=== PATIENT | male | born 1980 | race Caucasian/White ===

== ENCOUNTER → 2018-01-03 11:49 | Outpatient (CLI) | payer MEDICAID, SELFPAY ==
[2018-01-03 14:25] LABS: Absolute Lymphocyte Count 1.95 X10^3/ul (0.83-4.51); Absolute Neutrophil Count 3.4 X10^3/uL (2.0-7.7); Basophil# 0.03 X10^3/uL; Basophil% 0.5 % (0-1); Eosinophil# 0.21 X10^3/uL; Eosinophils% 3.3 % (0-5); Hematocrit 44.4 % (40-54); Hemoglobin 15.3 g/dl (13.0-16.5); Lymphocyte # 1.95 X10^3/ul (4.0); Lymphocyte % 30.7 % (19-41); Mean Corp Hgb Conc 34.5 g/gl (32-36); Mean Corpuscular Hgb 32.6 pg (27.0-32.0); Mean Corpuscular Volume 94.7 fL (80-94); Mean Platelet Vol. 10.5 fl (6.2-12.0); Monocyte# 0.71 X10^3/uL; Monocyte% 11.2 % (0-10); Neutrophil # 3.44 X10^3/uL (2.7-7.7); Neutrophil % 54.1 % (47-70); Platelet Count 253 K/mm3 (150-450); RBC Distribution Width CV 12.4 % (11.6-14.6); RBC Distribution Width SD 42.2 fl (35.1-43.9); Red Blood Count 4.69 M/mm3 (4.6-6.2); White Blood Count 6.4 K/mm3 (4.4-11.0)
[2018-01-03 14:36] LABS: POSITIVE COUNT NO; POSITIVE DIFFERENTIAL NO; POSITIVE MORPHOLOGY NO
[2018-01-03 14:43] LABS: Vitamin B12 989 pg/mL (211-911); Vitamin D,25 Hydroxy 22.9 ng/mL (29.95-100.01)
[2018-01-03 14:59] LABS: ALB/GLOB Ratio 1.1 RATIO (0.9-2.4); AST(SGOT) 18 U/L (15-37); Alanine Aminotransfer ALT/SGPT 17 U/L (16-61); Albumin, Serum 4.2 g/dL (3.2-5.0); Alkaline Phosphatase 137 U/L (45-117); Anion Gap 10 (5-15); BUN 12 mg/dL (7-18); BUN/Creat Ratio 13.6 RATIO (10-20); Chloride 105 mmol/L (98-107); Creatinine, Serum 0.88 mg/dL (0.70-1.30); EST Glomerular Filtration Rate 102 mL/min (>60); Est Glom Filt Rate - Afr Amer 124 mL/min (>60); Globulin 3.8 g/dL (2.2-4.2); Glucose 90 mg/dL (74-106); Iron 99 ug/dL (65-175); Potassium 3.8 mmol/L (3.5-5.1); Prealbumin 31.7 mg/dL (20.0-40.0); Sodium Level 142 mmol/L (136-145); Thyroid Stim Hormone (TSH) 1.07 uIU/mL (0.358-3.74)
== END ==
PROVIDERS: Family Provider Family Medicine; PCP Family Medicine; Visit Provider Family Medicine
DX: G80.9 Cerebral palsy, unspecified (principal)
CPT/HCPCS: 36415; 80053; 82306; 82607; 83540; 84134; 84443; 85025

== ENCOUNTER → 2018-01-17 12:38 | Outpatient (CLI) | payer MEDICAID, SELFPAY ==
--- NOTE | 2018-01-17 12:41 | RAD_ITS ---
STUDY: SWALLOWING STUDY REASON FOR EXAM: Male, 37 years old. Cerebral palsy. Dysphagia. Limited study due to patient's condition. TECHNIQUE: The examination was performed with Speech Pathology in attendance. Under fluoroscopic observation, the patient ingested thin barium, thick barium, barium pudding, and barium coated cracker. FLUOROSCOPY TIME: 1:20 minutes/seconds. 1247 spot images were obtained. RADIOLOGIST INVOLVEMENT: Radiologist was present and providing direct supervision. COMPARISON: None. FINDINGS: The following was observed during swallowing of the various mixtures of barium: Thin Barium: Penetration with evacuation upon ingestion of thin liquids. Barium Pudding: Patient refused to ingest pudding. RAD/Swallowing Function w/Video IMPRESSION: Limited study. Penetration with evacuation upon ingestion of thin liquids. The swallow study findings were discussed with the patient by the speech pathologist at the conclusion of the examination. Please see speech pathology report for more information and recommendations. Electronically Signed: Jewel Anne MD at 13:59 EDT Tel [phone], Service support ,
--- NOTE | 2018-01-17 13:00 | SP.MBSS_ITS ---
PRIMARY / SECONDARY DIAGNOSIS: cerebral palsy (G80.9), dysphagia (R13.10) REFERRING PHYSICIAN: Dr. Jose Angel Sellers MD CURRENT DIET: pureed textures, thin liquids DENTITION: WFL MENTAL STATUS: impaired RESPIRATORY STATUS: O2 via room air PREVIOUS MODIFIED BARIUM SWALLOW STUDY: none REASON FOR REFERRAL: Patient is a 37 year old male referred for a modified barium swallow (MBS) study to objectively assess the Patients oropharyngeal swallow function under fluoroscopy secondary to difficulties during deglutition secondary to the diagnosis of cerebral palsy. Patients caregiver present, reports Patient consumes intake at a very rapid rate with Patient frequently spitting out material. Patients caregiver reports limited further history, as she very recently assumed guardianship following the passing of the Patients prior caregiver. Patient brought back to fluoroscopy suite prior to clinician arrival due to significant agitation / anxiety while in waiting room, difficult to keep Patient in wheelchair and initially in fluoroscopy suite chair. MEDICAL HISTORY: Cerebral palsy, severe cognitive deficits, Patients caregiver unable to provide further detail. STUDY FINDINGS: Patient participated in a Modified Barium Swallow (MBS) study on 01/17/2018. Dr. Anne was the radiologist present for this evaluation. This study was recorded in the lateral view and images were sent to PACs for storage. The following consistencies were presented to this patient for analysis of oropharyngeal swallow function: thin liquids and pudding textures pudding. Results of the MBS are as follows: PENETRATION / ASPIRATION SCALE (WOODARD): 1 = does not enter airway 2 = enters airway/above vocal folds/ejected 3 = enters airway/above vocal folds/not ejected 4 = enters airway/contacts vocal folds/ejected 5 = enters airway/contacts vocal folds/not ejected 6 = enters airway/below vocal folds/ejected 7 = enters airway/below vocal folds/not ejected despite effort 8 = enters airway/below vocal folds/no effort PENETRATION / ASPIRATION SCALE (SCORE): Thin liquid - 5 mL controlled bolus: UNK* Thin liquids via straw (sequential swallows): UNK* Thin liquids via straw (sequential swallows): 1 Thin liquids via straw (sequential swallows): UNK* Thin liquids via straw (sequential swallows): 4 Pudding via spoon: NA * denotes inability to appropriately assess trial due to significant anterior / posterior trunk movement and left / right head movement compromising image quality denotes complete expectoration of bolus IMPRESSION: DIAGNOSIS: severe oral dysphagia (R13.11) ORAL PHASE CHARACTERIZED BY: LABIAL SEAL: copious escape beyond mid chin TONGUE CONTROL DURING BOLUS MANIPULATION: posterior escape of greater than half of bolus BOLUS PREPARATION / MASTICATION: not obtained BOLUS TRANSPORT / LINGUAL MOTION: brisk albeit at times disorganized tongue motion ORAL RESIDUE: no consistent presentation PHARYNGEAL PHASE CHARACTERIZED BY: INITIATION OF PHARYNGEAL SWALLOW: bolus head in pyriforms at first hyoid excursion SOFT PALATE ELEVATION: could not view LARYNGEAL ELEVATION: could not view ANTERIOR HYOID EXCURSION: could not view EPIGLOTTIC MOVEMENT: could not view LARYNGEAL VESTIBULE CLOSURE AT HEIGHT OF SWALLOW: could not view PHARYNGEAL STRIPPING WAVE: could not view PHARYNGOESOPHAGEAL SEGMENT OPENING: complete distension and complete duration with no obstruction of flow TONGUE BASE RETRACTION: could not view PHARYNGEAL RESIDUE: inconsistent, occasional collection of residue within or on pharyngeal structures ESOPHAGEAL PHASE CHARACTERIZED BY: ESOPHAGEAL BOLUS CLEARANCE IN THE UPRIGHT POSITION: could not view DIET TEXTURE RECOMMENDATIONS: Insufficient data captured to establish PO intake tolerance; recommend clinical assessment at outpatient / home health level of care. INTERPRETATION OF RESULTS: Patient presents with severe oral dysphagia (R13.11) secondary to the diagnosis of cerebral palsy and profound cognitive impairment. Oral phase primarily marked by severe tachyphagia with very rapid and disorganized intake, with the Patient frequently requiring this clinician to remove the straw from the Patients oral cavity, as the Patient would rapidly continue with ingestion with very strong suction leading to deep posterior straw placement possibly complicating results (consistent posterior spillage and disorganized bolus placement upon pharyngeal swallow onset, likely associated with oral phase deficits); frequent anterior bolus loss / projection due to disorganization of the oral phase, with the Patient frequently noted to lose over 50% of the bolus. No obvious pharyngeal phase deficit appreciated, though very difficult to discern, as the Patient was unable maintain upright positioning, frequently moving and attempting to slide downward, frequently moving head complicating image quality and interpretation, requiring assistance from the Patients caregiver. RECOMMENDATIONS: Would caution interpretation of results obtained during the current study to be fully indicative of baseline tolerance or presentation, as image quality was significantly compromised by the frequency of movement, with very limited observation of critical points during the swallow was available. Would caution recommendations for repeat assessment under fluoroscopy due to the Patients inability to meaningfully participate, as it is unlikely that information gleaned from this or future assessments would be of use during treatment planning, as all information could easily be obtained at bedside / during the clinical examination. Patient requires intensive skilled speech-language intervention targeting continued diet texture management; caregiver training and implementation of recommended compensatory strategies; and caregiver education regarding dysphagia associated with cerebral palsy and profound cognitive impairments. ADDITIONAL COMMENTS/RECOMMENDATIONS: Results and recommendations were discussed with the Patients caregiver immediately following MBS completion, with the Patients caregiver verbalizing understanding and agreement with all recommendations and education provided. IMAGE COUNT: 1247 G-CODES: SWALLOWING G8996 Current Status: CK SWALLOWING G8997 Goal Status: CJ SWALLOWING G8998 Discharge Status: CK
== END ==
PROVIDERS: Family Provider Family Medicine; PCP Family Medicine; Visit Provider Family Medicine
DX: R13.10 Dysphagia, unspecified (principal); G80.9 Cerebral palsy, unspecified
CPT/HCPCS: 74230; 92611

== ENCOUNTER → 2018-05-16 07:36 | Outpatient (CLI) | payer MEDICAID, SELFPAY ==
--- NOTE | 2018-05-16 08:11 | RAD_ITS ---
STUDY: X-RAY - ABDOMEN/PELVIS REASON FOR EXAM: Male, 37 years old. Constipation. TECHNIQUE: AP supine and upright views of the abdomen and pelvis. COMPARISON: None. FINDINGS: Normal visualized lung bases. There is an abundance of fecal material throughout the colon. There is no demonstrated free abdominal air. The visualized liver, spleen and kidneys are grossly normal in size and morphology. Normal soft tissue structures. Dextroscoliosis of the thoracic spine and levoscoliosis of the lumbar spine. RAD/Abd Inc Decub and/or Erect IMPRESSION: Large amount of fecal material is seen in the colon. Electronically Signed: Jewel Anne MD at 9:18 EDT Tel [phone], Service support ,
== END ==
LOC: MTRAD 07:39 → RAD 07:51
PROVIDERS: Family Provider Family Medicine; PCP Family Medicine; Visit Provider Family Medicine
DX: K59.09 Other constipation (principal)
CPT/HCPCS: 74019

== ENCOUNTER → 2018-05-31 08:27 | Outpatient (CLI) | payer MEDICAID, SELFPAY ==
--- NOTE | 2018-05-31 08:30 | RAD_ITS ---
STUDY: X-RAY - LEFT KNEE REASON FOR EXAM: Cerebral palsy. TECHNIQUE: 2 view(s) of the knee. COMPARISON: None. FINDINGS: Normal visualized distal femur. Normal visualized proximal tibia and fibula. Normal proximal tibiofibular articulation. Normal patella. There is flexion deformity. The soft tissue structures are unremarkable. RAD/Knee 1 or 2 Views IMPRESSION: Flexion deformity. Electronically Signed: Patrice Gregory MD at 9:09 EDT Tel , Service support ,
--- NOTE | 2018-05-31 08:30 | RAD_ITS ---
STUDY: X-RAY - PELVIS AND BILATERAL HIPS REASON FOR EXAM: Cerebral palsy. TECHNIQUE: Radiological exam, hip, bilateral, with pelvis when performed; 2 views COMPARISON: None. FINDINGS: Normal visualized soft tissue structures. Normal bilateral iliac wings, sacroiliac joints and visualized sacrum. Normal bilateral superior and inferior pubic rami. Normal pubic symphysis. Normal bilateral ischial tuberosities. Normal visualized right femoral head. Normal right acetabulum. There is flexion deformity of the right hip. Normal visualized left femoral head. There is an incidental bone island left femoral head. Normal left acetabulum. There is flexion deformity of the left hip. RAD/Hips B/L min 2 views w/ Pelvis IMPRESSION: Flexion deformity of the bilateral hips. Electronically Signed: Patrice Gregory MD at 9:08 EDT Tel , Service support ,
--- NOTE | 2018-05-31 08:30 | RAD_ITS ---
STUDY: X-RAY - RIGHT KNEE REASON FOR EXAM: Cerebral palsy. TECHNIQUE: 2 view(s) of the knee. COMPARISON: None. FINDINGS: Normal visualized distal femur. Normal visualized proximal tibia and fibula. Normal proximal tibiofibular articulation. Normal patellofemoral There is flexion deformity. The soft tissue structures are unremarkable. RAD/Knee 1 or 2 Views IMPRESSION: Flexion deformity. Electronically Signed: Patrice Gregory MD at 9:09 EDT Tel , Service support ,
== END ==
PROVIDERS: Family Provider Family Medicine; PCP Family Medicine; Referring Provider Orthopaedic Surgery; Visit Provider Orthopaedic Surgery
DX: M25.561 Pain in right knee (principal); M25.562 Pain in left knee
CPT/HCPCS: 73521; 73560

== ENCOUNTER → 2018-08-13 09:30 | Outpatient (CLI) | payer MEDICAID, SELFPAY ==
[2018-08-13 12:41] LABS: Vitamin D,25 Hydroxy 55.2 ng/mL (29.95-100.01)
[2018-08-13 12:56] LABS: Cholesterol 174 mg/dL (200); High Density Lipoprotein 42 mg/dL; Triglycerides 176 mg/dL; Very Low Density Lipoprotein 35 mg/dL (5-40)
== END ==
PROVIDERS: Family Provider Family Medicine; PCP Family Medicine; Visit Provider Family Medicine
DX: E55.9 Vitamin D deficiency, unspecified (principal); Z13.220 Encounter for screening for lipoid disorders
CPT/HCPCS: 36415; 80061; 82306

== ENCOUNTER → 2019-12-06 | Outpatient (CLI) | payer MEDICARE, MEDICAID, SELFPAY ==
[2019-12-06 12:46] LABS: Vitamin D,25 Hydroxy 51.6 ng/mL
[2019-12-06 12:59] LABS: AST(SGOT) 25 U/L (15-37); Alanine Aminotransfer ALT/SGPT 33 U/L (16-61); Albumin, Serum 3.5 g/dL (3.2-5.0); Alkaline Phosphatase 121 U/L (45-117); Anion Gap 5 (5-15); BUN 14 mg/dL (7-18); Calcium,Total 9.4 mg/dL (8.5-10.1); Chloride 105 mmol/L (98-107); Creatinine, Serum 0.78 mg/dL (0.70-1.30); EST Glomerular Filtration Rate 117 mL/min (>60); Est Glom Filt Rate - Afr Amer 142 mL/min (>60); Globulin 3.4 g/dL (2.2-4.2); Glucose 108 mg/dL (74-106); Potassium 3.8 mmol/L (3.5-5.1); Protein, Total 6.9 g/dL (6.4-8.2); Sodium Level 139 mmol/L (136-145)
== END | disposition home or self-care (01) ==
PROVIDERS: PCP Family Medicine; Referring Provider Family Medicine; Visit Provider Family Medicine
DX: E55.9 Vitamin D deficiency, unspecified (principal); G80.9 Cerebral palsy, unspecified
CPT/HCPCS: 36415; 80053; 82306

== ENCOUNTER → 2020-04-01 | Outpatient (CLI) | payer MEDICARE, MEDICAID, SELFPAY | END | disposition home or self-care (01) | PROVIDERS: PCP Family Medicine; Visit Provider Family Medicine | DX: Z20.828 Contact with and (suspected) exposure to other viral communicable diseases (principal) | CPT/HCPCS: 87635; U0003 ==

== ENCOUNTER → 2021-08-02 | Outpatient (CLI) | payer MEDICARE, MEDICAID, SELFPAY | END | disposition home or self-care (01) | PROVIDERS: PCP Family Medicine; Referring Provider Family Medicine; Visit Provider Family Medicine | DX: Z20.822 Contact with and (suspected) exposure to COVID-19 (principal) | CPT/HCPCS: 87635; U0005; U0003 ==

== ENCOUNTER 2024-01-19 09:16 | Outpatient (CLI) | payer MEDICARE, MEDICAID, SELFPAY ==
[2024-01-19 10:51] LABS: Hematocrit 37.7 % (40-54); Hemoglobin 11.1 g/dL (13.0-16.5); Mean Corp Hgb Conc 29.4 g/dL (32-36); Mean Corpuscular Hgb 23.5 pg (27.0-32.0); Mean Corpuscular Volume 79.9 fL (80-94); Mean Platelet Vol. 9.6 fl (6.2-12.0); Platelet Count 387 K/mm3 (150-450); RBC Distribution Width CV 16.1 % (11.6-14.6); RBC Distribution Width SD 46.4 fl (35.1-43.9); Red Blood Count 4.72 M/mm3 (4.6-6.2); White Blood Count 6.5 K/mm3 (4.4-11.0)
[2024-01-19 11:18] LABS: Vitamin D,25 Hydroxy 31.1 ng/mL
[2024-01-19 11:42] LABS: ALB/GLOB Ratio 0.8 RATIO (0.9-2.4); AST(SGOT) 20 U/L (15-37); Alanine Aminotransfer ALT/SGPT 21 U/L (16-61); Albumin, Serum 3.7 g/dL (3.2-5.0); Alkaline Phosphatase 161 U/L (45-117); Anion Gap 4 (5-15); BUN 9 mg/dL (7-18); BUN/Creat Ratio 9.5 RATIO (10-20); Calcium,Total 9.8 mg/dL (8.5-10.1); Chloride 104 mmol/L (98-107); Cholesterol 218 mg/dL (200); Creatinine, Serum 0.94 mg/dL (0.70-1.30); EST Glomerular Filtration Rate 92 mL/min (>60); Est Glom Filt Rate - Afr Amer 111 mL/min (>60); Globulin 4.5 g/dL (2.2-4.2); Glucose 115 mg/dL (74-106); High Density Lipoprotein 39 mg/dL; Potassium 3.5 mmol/L (3.5-5.1); Protein, Total 8.2 g/dL (6.4-8.2); Sodium Level 137 mmol/L (136-145); Triglycerides 171 mg/dL; Very Low Density Lipoprotein 34 mg/dL (5-40)
== END 2024-01-19 23:59 | disposition home or self-care (01) ==
LOC: MTLAB 09:19
PROVIDERS: PCP Family Medicine; Referring Provider Family Medicine; Visit Provider Family Medicine
DX: Z13.220 Encounter for screening for lipoid disorders (principal); G40.909 Epilepsy, unspecified, not intractable, without status epilepticus; E55.9 Vitamin D deficiency, unspecified
CPT/HCPCS: 36415; 80053; 80061; 82306; 85027